=== PATIENT | male | born 1965 | race Caucasian/White ===

== ENCOUNTER → 2024-11-14 15:53 | Outpatient (REF) | payer BC, SELFPAY | LOC: RAD 15:53 | PROVIDERS: ATTENDING PHYSICIAN Specialist; FAMILY PHYSICIAN Family Medicine | DX: R31.0 Gross hematuria (principal) | CPT/HCPCS: 74178; Q9967 ==

== ENCOUNTER 2024-12-31 05:54 | Day surgery (SDC) | payer BC, SELFPAY ==
[2024-12-17 14:07] VITALS: BMI 31.3
[2024-12-31 06:14] VITALS: BMI 31.3
[2024-12-31 06:22] VITALS: BP 165/94
[2024-12-31] MEDS: NORMOSOL-R/PLASMALYTE-A 1000 IV (06:32)
[2024-12-31] MEDS: TYLENOL 1000 MG PO (06:32)
--- NOTE | 2024-12-31 07:05 | HP.FOC2 ---
Focused History & Physical
Chief Complaint
HPI:
Chief Complaint: Right inguinal hernia
HPI / Indication for Planned Procedure: 59-year-old male recently seen in outpatient surgical evaluation secondary to visible and palpable swelling in the right inguinal region. Awareness of the hernia being present and occasional discomfort. No
significant pain. Past medical history notable for RAL radical prostatectomy, pelvic lymphadenectomy followed by adjuvant radiation therapy. Patient presents today for scheduled operative correction right inguinal hernia.
Relevant Past Medical History: Other (ESBL prostatitis, history of prostate cancer, hypothyroidism, hypertension, hyperlipidemia, celiac disease, A-fib, hemochromatosis)
Relevant Social History: Negative
Relevant Family History: Negative
Relevant Past Surgical History: Positive for (Polypectomies, vasectomy, radical prostatectomy, cardiac ablation)
Review of Systems
Review of Pertinent Systems: All Systems Negative
Medication
See Medication form for detailed medications: Yes
Medication List (including Herbals & OTC):
levothyroxine 100 mcg tablet 100 mcg PO DAILY 12/30/20
diltiazem HCl 120 mg capsule,extended release 24 hr 120 mg PO DAILY 01/20/21
aspirin 81 mg tablet,delayed release 81 mg PO DAILY 12/24/24
ibuprofen 200 mg tablet 400 - 600 mg PO Q6H PRN Pain 12/24/24
rosuvastatin 10 mg tablet (Crestor) 10 mg PO DAILY 12/24/24
Medications Reviewed: Yes
Allergies and Reactions
Patient has Allergies: Yes
Noted Allergies and Reactions:
Allergy/AdvReac Type Severity Reaction Status Date / Time
Gluten Allergy Celiac Uncoded 12/31/24 06:12
disease
Pertinent Physical Exam
All Other Systems: Negative
Head/Neck: Normal
Lungs: Normal
Heart: Normal
Abdomen: Other (Reducible right inguinal hernia)
Extremities: Normal
Neurological: Normal
Diagnosis / Assessment
59-year-old male presenting for scheduled operative correction symptomatic right inguinal hernia
Plan / Procedure
Open repair right inguinal hernia with mesh
Anesthesia/Sedation to be done by Anesthesia Provider: Yes
--- NOTE | 2024-12-31 07:08 | W.SUR.PREOP ---
Pre-Operative Surgical Note
-
I have examined this patient prior to the performance of the scheduled procedure.
The patient's condition is unchanged from the time of the current History and
Physical and the patient is able to undergo the scheduled procedure.
--- NOTE | 2024-12-31 09:02 | W.IMMPOSTOP ---
Addendum entered and electronically signed by Elia Larios MD 12/31/24 11:15:
#[id number]
Original Note:
Surgical Immed Post Op Note
-
Primary Surgeon: Elia Larios MD
Assisting Surgeon: Coleen Tucker PA-C
Pre-op Diagnosis: Right inguinal hernia
Post-op Diagnosis: Right inguinal hernia�indirect
Procedure Performed: Open Josh tension-free repair right inguinal hernia with mesh
Anesthesia Type: MAC +1% lidocaine/0.25% Marcaine with epi
Specimen / Cultures: None
Estimated Blood Loss: 8 mL
Complications: None immediate
Operative Findings: Right indirect inguinal hernia and lipoma of the cord structures excised to facilitate repair. Bard soft mesh 7.5 x 15 cm, tension-free mesh repair.
The assistance of Coleen Tucker PA-C was required due to the complexity of the procedure. During the procedure Coleen Tucker PA-C assisted with retraction, tissue exposure, and closure of the surgical site.
[2024-12-31 09:15] VITALS: BP 161/87
[2024-12-31 09:30] VITALS: BP 135/94
[2024-12-31 09:45] VITALS: BP 142/82
== END 2024-12-31 10:00 | disposition home or self-care (01) ==
LOC: SDS 05:54
PROVIDERS: ATTENDING PHYSICIAN Surgery; FAMILY PHYSICIAN Family Medicine
DX: K40.90 Unilateral inguinal hernia, without obstruction or gangrene, not specified as recurrent (principal)
CPT/HCPCS: 49505; 36415; 93005

== ENCOUNTER → 2025-07-12 07:26 | Outpatient (REF) | payer BC, SELFPAY | LOC: RAD 07:26 | PROVIDERS: ATTENDING PHYSICIAN Family Medicine | DX: K90.0 Celiac disease (principal); M85.80 Other specified disorders of bone density and structure, unspecified site | CPT/HCPCS: 77080 ==

== ENCOUNTER → 2025-08-13 12:41 | Outpatient (REF) | payer BC, SELFPAY | LOC: HWRAD 12:41 | PROVIDERS: ATTENDING PHYSICIAN Specialist; FAMILY PHYSICIAN Family Medicine | DX: R31.9 Hematuria, unspecified (principal) | CPT/HCPCS: 76770 ==